=== PATIENT | female | born 1970 ===

== ENCOUNTER 2017-08-02 10:23 | Outpatient (CLI) | payer OTHER | END 2017-08-02 15:00 | disposition home or self-care (01) | LOC: RAD 10:23 | DX: R05 Cough (principal) ==

== ENCOUNTER 2017-12-01 19:19 | Emergency (ER) | payer OTHER ==
[~2017-12-01] VITALS: Ht 162.6 cm; Wt 63.5 kg
== END 2017-12-02 01:13 | disposition home or self-care (01) ==
LOC: ER 19:19
DX: R07.89 Other chest pain (principal); M94.0 Chondrocostal junction syndrome [Tietze]

== ENCOUNTER 2021-01-09 23:19 | Emergency (ER) | payer OTHER ==
[~2021-01-09] VITALS: Ht 162.6 cm; Wt 77.1 kg
[2021-01-10] MEDS ORDERED: SINGULAIR 10MG10 MG PO (03:17)
== END 2021-01-10 03:36 ==
LOC: ER 23:19
DX: R05 Cough (principal); R07.89 Other chest pain; Z03.818 Encounter for observation for suspected exposure to other biological agents ruled out

== ENCOUNTER 2021-09-25 11:20 | Outpatient (CLI) | payer OTHER ==
[~2021-09-25 11:20] MED LIST: SINGULAIR 10MG10 MG PO
== END 2021-09-25 11:28 | disposition home or self-care (01) ==
LOC: SONOGRAMA 11:20
PROVIDERS: ATTEND Pathology Anatomic Pathology & Clinical Pathology
DX: E04.1 Nontoxic single thyroid nodule (principal)

== ENCOUNTER 2022-02-05 10:30 | Outpatient (CLI) | payer OTHER | END 2022-02-05 10:31 | disposition home or self-care (01) | LOC: SONOGRAMA 10:30 | PROVIDERS: ATTEND Pathology Anatomic Pathology & Clinical Pathology | DX: E04.1 Nontoxic single thyroid nodule (principal); D44.0 Neoplasm of uncertain behavior of thyroid gland ==